=== PATIENT | male | born 1965 | race Caucasian/White ===

== ENCOUNTER → 2021-01-19 | Day surgery (SDC) | payer OTHER ==
[~2021-01-19] VITALS: Ht 190.5 cm; Wt 108.0 kg
[~2021-01-19] MED LIST: ASPIRIN EC81 MG PO; CHLORTHALIDONE25 MG PO; HUMALOG SC; ONDANSETRON ODT8 MG PO; PRINIVIL20 MG PO; TRAMADOL HCL50 MG PO
[2021-01-19 09:32] LABS: BILIRUBIN - TOTAL 2.6 mg/dL (0.2-1.0); BUN/CREAT RATIO (CALC) 18.7 RATIO; CREATININE 0.91 mg/dL (0.67-1.17); GLOBULIN (CALCULATION) 3.2 g/dL; POTASSIUM 3.7 mmol/L (3.5-5.1); TOTAL PROTEIN 7.2 g/dL (6.4-8.2)
[2021-01-19 09:37] LABS: HCT 56.6 % (42.0-52.0); MCH 30.1 pg (25.0-31.0); MCHC 34.8 g/dL (32.0-36.0); MCV 86.4 fL (78.0-100.0); MPV 9.9 fL (6.0-9.5); RBC 6.55 M/uL (4.70-6.00); RDW 13.9 % (11.5-14.0); WBC 8.8 K/uL (4.0-10.5)
[2021-01-19 09:43] LABS: HGB 19.7 g/dl (13.2-18.0)
== END | disposition home or self-care (01) ==
LOC: FAS 08:12 → EDBD 08:45
PROVIDERS: Surgery
DX: Z12.11 Encounter for screening for malignant neoplasm of colon (principal); K64.3 Fourth degree hemorrhoids; I10 Essential (primary) hypertension; G47.30 Sleep apnea, unspecified; Z88.5 Allergy status to narcotic agent; Z79.82 Long term (current) use of aspirin; Z79.899 Other long term (current) drug therapy
CPT/HCPCS: 46945; G0121; 36415; 80053; J0690; J1100; J2250; J2405; J2704; J3010; J7120

== ENCOUNTER 2021-01-28 11:10 | Day surgery (SDC) | payer OTHER ==
[2021-01-28 12:17] LABS: BASOPHIL 0.3 % (0-2); EOSINOPHIL 0.6 % (0-5); HCT 45.9 % (42.0-52.0); HGB 15.7 g/dl (13.2-18.0); LYMPHOCYTE 16.5 % (15-48); MCH 29.7 pg (25.0-31.0); MCHC 34.2 g/dL (32.0-36.0); MCV 86.8 fL (78.0-100.0); MPV 9.7 fL (6.0-9.5); NEUTROPHIL 76.9 % (41-80); NRBC 0; PLT 229 K/uL (150-400); RBC 5.29 M/uL (4.70-6.00); RDW 13.5 % (11.5-14.0); WBC 11.6 K/uL (4.0-10.5)
[2021-01-28 12:26] LABS: BUN/CREAT RATIO (CALC) 19.5 RATIO; CREATININE 0.82 mg/dL (0.67-1.17); POTASSIUM 3.5 mmol/L (3.5-5.1)
[2021-01-28 12:44] LABS: INR 1.02 (0.9-1.2); PROTHROMBIN TIME 12.8 SECONDS (11.8-13.4); PTT 28.7 SECONDS (24.4-34.7)
== END 2021-01-28 15:03 | disposition home or self-care (01) ==
LOC: FER 11:10 → FAS 11:45
PROVIDERS: Emergency Medicine
DX: K91.840 Postprocedural hemorrhage of a digestive system organ or structure following a digestive system procedure (principal); K26.9 Duodenal ulcer, unspecified as acute or chronic, without hemorrhage or perforation; K29.50 Unspecified chronic gastritis without bleeding; K29.80 Duodenitis without bleeding; E11.9 Type 2 diabetes mellitus without complications; I10 Essential (primary) hypertension; Z88.5 Allergy status to narcotic agent; Z91.030 Bee allergy status; E78.5 Hyperlipidemia, unspecified; G47.30 Sleep apnea, unspecified; Z86.73 Personal history of transient ischemic attack (TIA), and cerebral infarction without residual deficits; Z79.4 Long term (current) use of insulin; Z79.899 Other long term (current) drug therapy; Z20.822 Contact with and (suspected) exposure to COVID-19
CPT/HCPCS: 36415; 80048; 85025; 85610; 85730; 86850; 86900; 86901; 99284; J0171; J2704; J7030; J7120; U0002